=== PATIENT | male | born 1980 | race African-American/Black ===

== ENCOUNTER 2016-11-13 11:16 | Emergency (ER) | payer SELFPAY ==
[~2016-11-13] VITALS: Ht 190.5 cm; Wt 79.0 kg
[~2016-11-13 11:16] MED LIST: CEPHALEXIN500 MG PO; CIPRO500 MG OR; DOXYCYC MONO100 M2 PO; EC ASPIRIN325 MG PO; HYDROCHLOROT25 MG PO; LISINOPRIL10 MG PO; LORTAB 10-325 M1 TAB PO; LORTAB 5/3255 MG PO; MOTRIN800 MG PO; NAPROSYN500 MG PO; NO; OXYCODONE5 M1 OR; ULTRAM50 M1 PO; ULTRAM50 MG OR; UNKNOWN ANTIBIOTIC; [UNRECOGNIZED DRUG - REMARK]
[2016-11-13] MEDS ORDERED: BENADRYL 50MG C50 MG PO (12:22)
[2016-11-13] MEDS ORDERED: CIMETIDINE400 M1 PO (12:22)
[2016-11-13] MEDS ORDERED: PREDNISONE10 MG PO (12:22)
[2016-11-13 12:25] VITALS: BP 139/74
== END 2016-11-13 12:25 | disposition home or self-care (01) | DRG 607 ==
LOC: ED 11:16
DX: R21 Rash and other nonspecific skin eruption (principal); L29.9 Pruritus, unspecified